=== PATIENT | male | born 1960 | race Caucasian/White ===

== ENCOUNTER 2016-12-06 09:48 | Inpatient (IN) | payer OTHER ==
[~2016-12-06] VITALS: Ht 167.6 cm; Wt 80.5 kg
[~2016-12-06 09:48] MED LIST: ASPIR 8181 M1 PO; DAILY VALUE1 EACH PO; DURAGESIC100 MCG TD; DURAGESIC25 MCG TD; FENOFIBRATE134 M1 PO; HALCION0.25 MG PO; LEVAQUIN500 MG PO; LOFIBRA134 MG PO; NEURONTIN600 MG PO; NIACIN500 M4 PO; PAXIL10 MG PO; PAXIL20 MG PO; SOMA350 MG PO; TRIAZOLAM0.25 MG PO
[2016-12-06 11:15] LABS: MCH 29.3 PG (29.0-34.0); MCHC 33.9 G/DL (30.0-36.0); MCV 86.4 FL (86-99); MEAN PLAT.VOLUME 9.7 uM^3 (9.0-12.4); PLATELET COUNT 320 K/uL (156-360); RBC DIS.WIDTH-CV 11.7 % (11.8-14.6); RBC DIS.WIDTH-SD 37.3 % (39-53); WHITE BLOOD COUNT 6.9 K/uL (4.1-10.2)
[2016-12-06 11:28] LABS: ADD MIUA? YES; BILIRUBIN NEGATIVE; BLOOD NEGATIVE; COLOR YELLOW ((YELLOW)); GLUCOSE (STRIP) NEGATIVE; KETONES 5; LEUKOCYTES NEGATIVE; NITRITE NEGATIVE; PROTEIN (STRIP) 100; SPECIFIC GRAVITY 1.028 (1.000-1.030); UROBILINOGEN 0.2 MG/DL (0.2-1.0)
[2016-12-06 11:28] LABS: CHLORIDE 93 mEq/L (99-109); POTASSIUM 3.7 mEq/L (3.7-5.4); SODIUM 131 mEq/L (136-147)
[2016-12-06 11:30] LABS: GLUCOSE 99 mg/dL (70-99)
[2016-12-06 11:31] LABS: SERUM ETHYL ALCOHOL < 10 mg/dL
[2016-12-06 11:32] LABS: ANION GAP 15 MEQ/L (2-14); TOTAL BILIRUBIN 0.5 mg/dL (0.0-1.0)
[2016-12-06 11:34] LABS: ALKALINE PHOSPHATASE 76 IU/L (3-129); GFR ESTIMATE (CALCULATED) > 59 mL/min/
[2016-12-06 11:35] LABS: SALICYLATE < 5.0 MG/DL (15-30); UREA NITROGEN (BUN) 22 mg/dL (9-23)
[2016-12-06 11:37] LABS: AMPHETAMINE NEGATIVE (500 ng/mL); BACTERIA RARE /HPF; BARBITURATES NEGATIVE (200 ng/mL); BENZODIAZEPINES PRESUMPTIVE POSITIVE (150 ng/mL); COCAINE NEGATIVE (150 ng/mL); EPITHELIAL CELLS RARE /HPF; HYALINE CASTS 0-5 /LPF; INTERNAL CONTROLS VALID? YES; METHADONE NEGATIVE (200 ng/mL); METHAMPHETAMINE NEGATIVE (500 ng/mL); MUCUS TRACE /LPF; OPIATES (MORPHINE) NEGATIVE (100 ng/mL); OXYCODONE NEGATIVE (100 ng/mL); PHENCYCLIDINE NEGATIVE (25 ng/mL); PROPOXYPHENE NEGATIVE (300 ng/mL); RED BLOOD CELLS 0-5 /HPF (0-5); THC CANNABINOIDS NEGATIVE (50 ng/mL); TRICYCLIC ANTIDEPRESSANTS NEGATIVE (300 ng/mL); UCUL ADDED? NO; WHITE BLOOD CELLS 0-5 /HPF (0-5)
[2016-12-06 11:38] LABS: ADD MEDTOX COMMENT Y
[2016-12-06 12:15] LABS: BENZODIAZEPINES QUANT VALUE 0 NG/ML
[2016-12-06 12:21] LABS: BENZODIAZEPINES, URINE SCREEN Negative (200 ng/mL)
[2016-12-06] MEDS ORDERED: MIRALAX255 GM PO (12:49)
[2016-12-06 14:57] LABS: APPEARANCE CLEAR/COLORLESS; RED CELL AREA COUNTED 8; RED CELL COUNT 138 /MM^3 (0-1); RED CELL DILUTION 1; WBC AREA COUNTED 18; WBC DILUTION 1; WHITE CELL COUNT 11 /MM^3 (0-5); WHITE CELL RAW COUNT 19
[2016-12-06 14:59] LABS: CSF EOSINOPHILS 0 % (0-25); MONO RAW COUNT 99; MONONUCLEAR WBC'S 99 % (50-90); POLY RAW COUNT 1; POLYNUCLEAR WBC'S 1 % (0-3)
[2016-12-06 15:09] LABS: APPEARANCE (RECHECK) CLEAR/COLORLESS; CSF TUBE NUMBER (RECHECK) TUBE #1; RED CELL AREA COUNTED 8; RED CELL COUNT (RECHECK) 638 /MM^3 (0-1); RED CELL DILUTION 1
[2016-12-06 20:45] VITALS: BP 106/76
[2016-12-06 23:29] VITALS: BP 106/68
[2016-12-06 23:43] LABS: C DIFF TOXIN NEGATIVE (NEGATIVE)
[2016-12-06 23:44] LABS: PROBE CHECK PASS; SPECIMEN PROCESSING CONTROL PASS
[2016-12-07 03:01] VITALS: BP 122/76
[2016-12-07 07:07] LABS: HEMATOCRIT 36.1 % (38.0-50.0); MCH 28.6 PG (29.0-34.0); MCHC 32.7 G/DL (30.0-36.0); MCV 87.6 FL (86-99); MEAN PLAT.VOLUME 10.3 uM^3 (9.0-12.4); PLATELET COUNT 314 K/uL (156-360); RBC DIS.WIDTH-CV 11.9 % (11.8-14.6); RBC DIS.WIDTH-SD 38.5 % (39-53); RED BLOOD COUNT 4.12 M/uL (4.00-5.50)
[2016-12-07 07:27] LABS: ANION GAP 11 MEQ/L (2-14); CHLORIDE 102 MEQ/L (99-109); GFR ESTIMATE (CALCULATED) > 59 mL/min/; GLUCOSE 83 mg/dL (70-99); POTASSIUM 3.9 MEQ/L (3.7-5.4); SAMPLE HEMOLYSIS CHECK 0; SAMPLE ICTERIC CHECK 0; SAMPLE LIPEMIA CHECK 0; SODIUM 137 MEQ/L (136-147); UREA NITROGEN (BUN) 10 mg/dL (9-23)
[2016-12-07 07:29] LABS: WHITE BLOOD COUNT 4.3 K/uL (4.1-10.2)
[2016-12-07 07:59] VITALS: BP 125/81
[2016-12-07 11:44] VITALS: BP 125/82
[2016-12-07 16:03] VITALS: BP 116/82
[2016-12-07 19:00] VITALS: BP 123/65
[2016-12-07 23:15] VITALS: BP 134/86
[2016-12-08 01:41] LABS: HSV CSF Spec Source CSF (())
[2016-12-08 03:15] VITALS: BP 148/88
[2016-12-08 06:38] LABS: HEMATOCRIT 35.3 % (38.0-50.0); MCHC 33.4 G/DL (30.0-36.0); MCV 86.7 FL (86-99); MEAN PLAT.VOLUME 9.9 uM^3 (9.0-12.4); PLATELET COUNT 318 K/uL (156-360); RBC DIS.WIDTH-CV 12.1 % (11.8-14.6); RBC DIS.WIDTH-SD 38.9 % (39-53); RED BLOOD COUNT 4.07 M/uL (4.00-5.50); WHITE BLOOD COUNT 3.5 K/uL (4.1-10.2)
[2016-12-08 07:02] LABS: ANION GAP 10 MEQ/L (2-14); CHLORIDE 105 MEQ/L (99-109); GFR ESTIMATE (CALCULATED) > 59 mL/min/; GLUCOSE 84 mg/dL (70-99); MAGNESIUM 1.9 mg/dl (1.3-2.7); POTASSIUM 3.5 MEQ/L (3.7-5.4); SAMPLE HEMOLYSIS CHECK 0; SAMPLE ICTERIC CHECK 0; SAMPLE LIPEMIA CHECK 0; SODIUM 137 MEQ/L (136-147); UREA NITROGEN (BUN) 6 mg/dL (9-23)
[2016-12-08 07:17] VITALS: BP 126/84
[2016-12-08 07:37] LABS: EOSINOPHIL (%) 1.1 % (0-5); HEMATOLOGY COMMENT 1 SMEAR COMPATIBLE; IMMATURE GRANULOCYTE (%) 0.6 % (0.0-0.7); INSTRUMENT ABS NEUTROPHIL CT 1.8 K/uL; LYMPHOCYTE COUNT 1.2 K/uL (1.0-2.8); MONOCYTE (%) 11.2 % (3-12); MONOCYTE COUNT 0.4 K/uL (0-0.8); NEUTROPHIL (%) 51.2 % (45-76); NEUTROPHIL COUNT 1.8 K/uL (1.8-6.4)
[2016-12-08 11:40] VITALS: BP 125/80
[2016-12-08 12:35] LABS: TROP-I INTERPRETATION NEGATIVE; TROPONIN-I < 0.01 ng/mL (0.0-0.30)
[2016-12-08 16:07] VITALS: BP 115/77
[2016-12-08 18:35] LABS: TROP-I INTERPRETATION NEGATIVE; TROPONIN-I < 0.01 ng/mL (0.0-0.30)
[2016-12-08 20:14] VITALS: BP 107/72
[2016-12-08 22:40] VITALS: BP 110/80
[2016-12-09 01:37] LABS: TROP-I INTERPRETATION NEGATIVE; TROPONIN-I < 0.01 ng/mL (0.0-0.30)
[2016-12-09 02:51] VITALS: BP 130/86
[2016-12-09 05:59] LABS: HEMATOCRIT 37.4 % (38.0-50.0); MCH 28.5 PG (29.0-34.0); MCHC 32.4 G/DL (30.0-36.0); MEAN PLAT.VOLUME 9.8 uM^3 (9.0-12.4); PLATELET COUNT 353 K/uL (156-360); RBC DIS.WIDTH-CV 12.4 % (11.8-14.6); RBC DIS.WIDTH-SD 39.8 % (39-53); RED BLOOD COUNT 4.25 M/uL (4.00-5.50); WHITE BLOOD COUNT 4.2 K/uL (4.1-10.2)
[2016-12-09 06:23] LABS: ANION GAP 8 MEQ/L (2-14); CHLORIDE 106 MEQ/L (99-109); GFR ESTIMATE (CALCULATED) > 59 mL/min/; GLUCOSE 83 mg/dL (70-99); MAGNESIUM 1.9 mg/dl (1.3-2.7); SAMPLE HEMOLYSIS CHECK 0; SAMPLE ICTERIC CHECK 0; SAMPLE LIPEMIA CHECK 0; SODIUM 137 MEQ/L (136-147); UREA NITROGEN (BUN) 6 mg/dL (9-23)
[2016-12-09 06:24] LABS: POTASSIUM 4.4 MEQ/L (3.7-5.4); TROP-I INTERPRETATION NEGATIVE; TROPONIN-I < 0.01 ng/mL (0.0-0.30)
[2016-12-09 06:54] LABS: EOSINOPHIL (%) 1.9 % (0-5); EOSINOPHIL COUNT 0.1 K/uL (0-0.3); IMMATURE GRANULOCYTE (%) 0.7 % (0.0-0.7); LYMPHOCYTE COUNT 1.6 K/uL (1.0-2.8); MONOCYTE COUNT 0.4 K/uL (0-0.8); NEUTROPHIL (%) 48.2 % (45-76)
[2016-12-09 07:05] VITALS: BP 128/78
[2016-12-09 11:31] VITALS: BP 121/83
[2016-12-09 13:13] LABS: TROP-I INTERPRETATION NEGATIVE; TROPONIN-I < 0.01 ng/mL (0.0-0.30)
[2016-12-09 15:58] VITALS: BP 135/77
[2016-12-09 18:15] LABS: TROP-I INTERPRETATION NEGATIVE; TROPONIN-I < 0.01 ng/mL (0.0-0.30)
[2016-12-09 20:15] VITALS: BP 124/92
[2016-12-10 00:07] VITALS: BP 123/73
[2016-12-10 01:37] LABS: TROP-I INTERPRETATION NEGATIVE; TROPONIN-I < 0.01 ng/mL (0.0-0.30)
[2016-12-10 05:54] VITALS: BP 119/80
[2016-12-10 06:46] LABS: TROP-I INTERPRETATION NEGATIVE; TROPONIN-I < 0.01 ng/mL (0.0-0.30)
== END 2016-12-10 07:56 | disposition left against medical advice (07) | DRG 94 ==
LOC: EME 09:48 → EDOF 16:40 → 4EAST 16:40 → EDOF 16:40 → 4EAST 20:24
PROVIDERS: Internal Medicine; Physician Assistant Medical
PROC: 009U3ZX Drainage of Spinal Canal, Percutaneous Approach, Diagnostic (ICD-10-PCS; principal; 2016-12-06)
DX: G00.8 Other bacterial meningitis (principal); G93.40 Encephalopathy, unspecified; E87.1 Hypo-osmolality and hyponatremia; R05 Cough; F13.10 Sedative, hypnotic or anxiolytic abuse, uncomplicated; B96.89 Other specified bacterial agents as the cause of diseases classified elsewhere; R47.81 Slurred speech; G89.29 Other chronic pain; H65.491 Other chronic nonsuppurative otitis media, right ear; R59.0 Localized enlarged lymph nodes; G47.00 Insomnia, unspecified; R91.1 Solitary pulmonary nodule; M47.892 Other spondylosis, cervical region
CPT/HCPCS: 70450; 70553; 71250; 72125; 80048; 80053; 80202; 81003; 82140; 82945; 83735; 84157; 84443; 84484; 84999; 85025; 85027; 86335 90; 87040; 87070; 87077; 87181; 87185; 87205; 87493; 87529 90; 89051; 93005; 99281; 99285; G0480; J0696; J1650; J2060; J2543; J3370; J7030; J7050